=== PATIENT | female | born 2000 | race Caucasian/White ===

== ENCOUNTER 2018-11-10 16:25 | Emergency (ER) | payer OTHER ==
[~2018-11-10] VITALS: Ht 157.5 cm; Wt 80.2 kg
[2018-11-10 16:38] VITALS: Ht 157.5 cm; Wt 80.2 kg
[2018-11-10] MEDS ORDERED: UDMYL PO (19:59)
[2018-11-10 20:06] VITALS: BP 107/67; PULSE 67; RESP 18
--- NOTE | 2018-11-10 20:09 | ERD ---
ER Documentation Chief Complaint Chief Complaint Complains of right ear pain with bleeding x 2 days HPI 18-year-old female presents for right ear pain and bleeding times 2 days. She admits to using Q-tips in her ear. The pain is likely 7 out of 10. She took Motrin at home with some relief. She also complains of abdominal bloating. No other complaints. ROS All systems reviewed and are negative except as per history of present illness. Medications Home Meds Active Scripts Magaldrate/Simethicone* (Mag-Al Plus Suspension*) 30 Ml Oral.susp, 30 ML PO Q6H PRN for GASTROINTESTINAL UPSET, #1 BOTTLE Prov:LONNY OLVERA DO 11/10/18 Allergies Allergies: Coded Allergies: No Known Allergy (Unverified , 11/23/18) PMhx/Soc Medical and Surgical Hx: pt denies Medical Hx, pt denies Surgical Hx Hx Alcohol Use: No Hx Substance Use: No Hx Tobacco Use: No Smoking Status: Never smoker Physical Exam Vitals Vital Signs Date Temp Pulse Resp B/P (MAP) Pulse Ox O2 O2 Flow FiO2 Time Delivery Rate 11/10/18 98.7 67 18 107/67 98 Room Air 20:06 (80) 11/10/18 98.3 74 20 113/59 95 16:38 (77) Physical Exam Const: No acute distress Head: Atraumatic Eyes: Normal Conjunctiva ENT: Right ear cerumen with some small blood spots over the right ear canal noted, after irrigation of the right ear was noted at the bilateral tympanic membrane were intact without erythema or bulging noted, nose and Mouth examination normal, no tonsillar swelling or exudate noted Neck: Full range of motion. No meningismus. Resp: Clear to auscultation bilaterally, no wheezing, rales, rhonchi Cardio: Regular rate and rhythm, no murmurs Skin: No petechiae or rashes Ext: No cyanosis, or edema Neur: Awake and alert Psych: Normal Mood and Affect Results 24 hrs Laboratory Tests Test 11/10/18 18:57 White Blood Count 7.1 10^3/ul Red Blood Count 4.87 10^6/ul Hemoglobin 14.9 g/dl Hematocrit 43.6 % Mean Corpuscular Volume 89.5 fl Mean Corpuscular Hemoglobin 30.6 pg Mean Corpuscular Hemoglobin Concent 34.2 g/dl Red Cell Distribution Width 11.8 % Platelet Count 215 10^3/UL Mean Platelet Volume 10.9 fl Immature Granulocytes % 0.300 % Neutrophils % 61.2 % Lymphocytes % 29.5 % Monocytes % 6.4 % Eosinophils % 2.0 % Basophils % 0.6 % Nucleated Red Blood Cells % 0.0 /100WBC Immature Granulocytes # 0.020 10^3/ul Neutrophils # 4.3 10^3/ul Lymphocytes # 2.1 10^3/ul Monocytes # 0.5 10^3/ul Eosinophils # 0.1 10^3/ul Basophils # 0.0 10^3/ul Nucleated Red Blood Cells # 0.0 10^3/ul Urine Color YELLOW Urine Clarity CLEAR Urine pH 6.0 Urine Specific [place] 1.012 Urine Ketones TRACE mg/dL Urine Nitrite NEGATIVE mg/dL Urine Bilirubin NEGATIVE mg/dL Urine Urobilinogen NEGATIVE mg/dL Urine Leukocyte Esterase NEGATIVE Jaida/ul Urine Hemoglobin NEGATIVE mg/dL Urine Glucose NEGATIVE mg/dL Urine Total Protein NEGATIVE mg/dl Sodium Level 143 mmol/L Potassium Level 4.2 mmol/L Chloride Level 101 mmol/L Carbon Dioxide Level 28 mmol/L Anion Gap 14 Blood Urea Nitrogen 11 mg/dl Creatinine 0.80 mg/dl Est Glomerular Filtrat Rate mL/min > 60 mL/min Glucose Level 101 mg/dl Calcium Level 9.9 mg/dl Total Bilirubin 0.2 mg/dl Direct Bilirubin 0.00 mg/dl Indirect Bilirubin 0.2 mg/dl Aspartate Amino Transf (AST/SGOT) 24 IU/L Alanine Aminotransferase (ALT/SGPT) 22 IU/L Alkaline Phosphatase 79 IU/L Total Protein 7.9 g/dl Albumin 4.8 g/dl Globulin 3.10 g/dl Albumin/Globulin Ratio 1.54 Procedures/MDM Medical Decision Making: Differential diagnosis includes but not limited to otitis media, otitis externa, cerumen impaction. Patient appeared well on physical exam. His right ear was irrigated that showed a normal tympanic membrane without erythema or bulging noted Patient's right ear pain improved with irrigation in the ER. There is some cerumen impaction on the right ear canal that was removed with irrigation. CBC showed no anemia, no elevated WBC to suggest infection CMP showed normal electrolytes, renal function and liver function normal UA was negative for infection. For patient's complaint of abdominal bloating patient given prescription for Mylanta. Patient advised to follow up with PCP in 1-2 days. Patient advised to return to ED for new or worsening symptoms. Patient stable on discharge from the ED. Disclaimer: Inadvertent spelling and grammatical errors are likely due to EHR/dictation software use and do not reflect on the overall quality of patient care. Also, please note that the electronic time recorded on this note does not necessarily reflect the actual time of the patient encounter. Departure Diagnosis: Primary Impression: Right ear pain Additional Impression: Bloating Condition: Fair Patient Instructions: Earache W/O Infection (Adult) Additional Instructions: Call your primary care doctor TOMORROW for an appointment during the next 1-2 days.See the doctor sooner or return here if your condition worsens before your appointment time. LONNY OLVERA DO Nov 10, 2018 20:09
== END 2018-11-10 20:07 | disposition home or self-care (01) ==
LOC: FTE 16:25
DX: H92.01 Otalgia, right ear (principal); R14.0 Abdominal distension (gaseous)
CPT/HCPCS: 80053; 81003; 85025; 99283

== ENCOUNTER 2019-02-19 08:01 | Emergency (ER) | payer MEDICAID, OTHER ==
[~2019-02-19] VITALS: Wt 75.0 kg
[~2019-02-19 08:01] MED LIST: UDMYL PO
[2019-02-19] MEDS ORDERED: ONDANSETRON 4 MG INJ IV STA (08:25)
[2019-02-19] MEDS ORDERED: SOD CHLORIDE 0.9% 1,000 ML IV STA (08:25)
[2019-02-19] MEDS ORDERED: KETOROLAC 30 MG INJ IV STA (08:25)
[2019-02-19] MEDS ORDERED: MECLIZINE 12.5 MG TAB PO ONE (08:30)
[2019-02-19] MEDS ORDERED: MECL12.574 PO (09:50)
[2019-02-19 10:00] VITALS: BP 104/59; PULSE 75; RESP 18
--- NOTE | 2019-02-19 10:22 | ERD ---
ER Documentation Chief Complaint Chief Complaint dizziness and nausea since woke up today HPI 18-year-old female presenting with dizziness and nausea that started this morning. She states that the room is spinning. Has a mild headache but no traumatic injury. Denies fevers. Denies visual changes. No fevers. Positive vomiting. Denies medical problems. NKDA. Surgical history denies. Social history denies ROS All systems reviewed and are negative except as per history of present illness. Medications Home Meds Active Scripts Meclizine Hcl* (Antivert*) 12.5 Mg Tab, 12.5 MG PO Q6H PRN for DIZZINESS, #20 TAB Prov:MONICA ZAMORA PA-C 02/19/19 Magaldrate/Simethicone* (Mag-Al Plus Suspension*) 30 Ml Oral.susp, 30 ML PO Q6H PRN for GASTROINTESTINAL UPSET, #1 BOTTLE Prov:LONNY OLVERA 11/10/18 Allergies Allergies: Coded Allergies: No Known Allergy (Unverified , 11/23/18) PMhx/Soc Hx Alcohol Use: No Hx Substance Use: No Hx Tobacco Use: No Smoking Status: Never smoker FmHx Family History: No diabetes, No coronary disease, No other Physical Exam Vitals Vital Signs Date Temp Pulse Resp B/P (MAP) Pulse Ox O2 O2 Flow FiO2 Time Delivery Rate 02/19/19 75 18 104/59 99 Room Air 10:00 (74) 02/19/19 98.1 64 18 117/75 99 08:03 (89) Physical Exam GENERAL: The patient is well-appearing, well-nourished, in no acute distress HEENT: Atraumatic. Conjunctivae are pink. Pupils equal, round, and reactive to light. There is no scleral icterus. Tympanic membranes clear bilaterally. Oropharynx clear. No nystagmus or photophobia. CHEST: Clear to auscultation bilaterally. There are no rales, wheezes or rhonchi. HEART: Regular rate and rhythm. No murmurs, clicks, rubs or gallops. No S3 or S4. NEUROLOGIC: Alert and oriented. Cranial nerves II through XII intact. Motor strength in all 4 extremities with 5 out of 5 strength. Sensation grossly intact. Normal speech and gait. SKIN: There is no apparent rash or petechiae. The skin is warm and dry. Result Diagram: 02/19/19 0844 02/19/19 0844 Results 24 hrs Laboratory Tests Test 02/19/19 08:38 02/19/19 08:44 02/19/19 08:45 POC Beta HCG, Qualitative NEGATIVE White Blood Count 6.5 10^3/ul Red Blood Count 5.33 10^6/ul Hemoglobin 16.3 g/dl Hematocrit 47.7 % Mean Corpuscular Volume 89.5 fl Mean Corpuscular Hemoglobin 30.6 pg Mean Corpuscular 34.2 g/dl Hemoglobin Concent Red Cell Distribution Width 11.9 % Platelet Count 204 10^3/UL Mean Platelet Volume 11.1 fl Immature Granulocytes % 0.300 % Neutrophils % 65.2 % Lymphocytes % 24.8 % Monocytes % 7.1 % Eosinophils % 2.0 % Basophils % 0.6 % Nucleated Red Blood Cells % 0.0 /100WBC Immature Granulocytes # 0.020 10^3/ul Neutrophils # 4.2 10^3/ul Lymphocytes # 1.6 10^3/ul Monocytes # 0.5 10^3/ul Eosinophils # 0.1 10^3/ul Basophils # 0.0 10^3/ul Nucleated Red Blood Cells # 0.0 10^3/ul Sodium Level 143 mmol/L Potassium Level 4.1 mmol/L Chloride Level 106 mmol/L Carbon Dioxide Level 27 mmol/L Anion Gap 10 Blood Urea Nitrogen 12 mg/dl Creatinine 0.71 mg/dl Est Glomerular Filtrat > 60 mL/min Rate mL/min Glucose Level 103 mg/dl Calcium Level 9.5 mg/dl Urine Color RED Urine Clarity TURBID Urine pH 6.0 Urine Specific [place] 1.021 Urine Ketones NEGATIVE mg/dL Urine Nitrite NEGATIVE mg/dL Urine Bilirubin NEGATIVE mg/dL Urine Urobilinogen NEGATIVE mg/dL Urine Leukocyte Esterase NEGATIVE Jaida/ul Urine Microscopic RBC > 182 /HPF Urine Microscopic WBC 2 /HPF Urine Hemoglobin 3+ mg/dL Urine Glucose NEGATIVE mg/dL Urine Total Protein 2+ mg/dl Current Medications Medications Dose Sig/Delia Start Time Status Last (Trade) Ordered Route PRN Stop Time Admin Dose Reason Admin Sodium 1,000 ml @ Q1H STAT 02/19/19 DC 02/19/19 Chloride 1,000 mls/hr IV 08:25 02/19/19 08:53 09:24 Ondansetron 4 mg ONCE STAT 02/19/19 DC 02/19/19 HCl (Zofran IV 08:25 02/19/19 08:53 Inj) 08:26 Ketorolac 30 mg ONCE STAT 02/19/19 DC 02/19/19 Tromethamine IV 08:25 02/19/19 08:53 (Toradol) 08:26 Meclizine 12.5 mg ONCE ONCE 02/19/19 DC 02/19/19 HCl PO 08:30 02/19/19 08:53 (Antivert) 08:31 Procedures/MDM DIAGNOSTIC IMAGING REPORT Patient: SHANE ERAZO : 2000 Age: 18 Sex: F MR #: [id number] DOS: 02/19/19824 Ordering MD: SCOTT ZAMORA PA-C Location: [facility] Room/Bed: PROCEDURE: CT Brain without contrast. CLINICAL INDICATION: Headache TECHNIQUE: A CT of the brain was performed utilizing axial imaging from the skull base through the vertex without IV contrast. Multiplanar reformatted images were made. Images were reviewed on a PACS workstation. CTDIvol: 39.04 mGy DLP: 634.23 mGycm DICOM images are available. One or more of the following dose reduction techniques were utilized: 1.) Automated exposure control 2.) Adjustment of the mA +/- kV according to patient's size 3.) Use of iterative reconstruction technique. COMPARISON: None FINDINGS: CALVARIUM: Regional bones are intact. SINUSES: Paranasal sinuses and mastoid air cells are clear. BRAIN: There is no evidence of intracranial hemorrhage. Prominence of ventricles and cisterns is normal for age. Nixon - white differentiation is preserved and there is no evidence of an acute or subacute territorial infarction. No intracranial mass or mass effect. IMPRESSION: Negative unenhanced head CT. ER course: 1L NS, toradol, zofran and meclizine given in ED. patient symptoms improved on reevaluation. MDM: 18-year-old female presenting with dizziness. Patient symptoms improved in the ER. Patient is discharged with supportive medications. I have low johnson spicion of intracranial hemorrhage or neuro deficit. Exam is non-concerning. I have low suspicion for meningitis or sepsis. I have low suspicion for infectious process. Patient is discharged with supportive medications and told to follow-up with primary care within 1 to 2 days for close evaluation. Patient is told symptoms change or worsen to return immediately to the ER. All questions answered at discharge Departure Diagnosis: Primary Impression: Vertigo Condition: Stable Patient Instructions: Vertigo, Unspecified Referrals: [facility] YOU HAVE RECEIVED A MEDICAL SCREENING EXAM AND THE RESULTS INDICATE THAT YOU DO NOT HAVE A CONDITION THAT REQUIRES URGENT TREATMENT IN THE EMERGENCY DEPARTMENT. FURTHER EVALUATION AND TREATMENT OF YOUR CONDITION CAN WAIT UNTIL YOU ARE SEEN IN YOUR DOCTORS OFFICE WITHIN THE NEXT 1-2 DAYS. IT IS YOUR RESPONSIBILITY TO MAKE AN APPOINTMENT FOR FOLOW-UP CARE. IF YOU HAVE A PRIMARY DOCTOR --you should call your primary doctor and schedule an appointment IF YOU DO NOT HAVE A PRIMARY DOCTOR YOU CAN CALL OUR PHYSICIAN REFERRAL HOTLINE AT IF YOU CAN NOT AFFORD TO SEE A PHYSICIAN YOU CAN CHOSE FROM THE FOLLOWING [facility] [address]. [facility] [address] [facility] [address] [facility] [facility] [address] [facility]. [facility] [address] [facility]. [facility]. [address] Additional Instructions: FOLLOW UP WITH YOUR PRIMARY CARE PHYSICIAN TOMORROW.Return to this facility if you are not improving as expected. MONICA ZAMORA PA-C February 19, 2019 10:22
== END 2019-02-19 10:01 | disposition home or self-care (01) ==
LOC: FTE 08:01
DX: R42 Dizziness and giddiness (principal)
CPT/HCPCS: 70450; 80048; 81001; 81025; 85025; J1885; J2405; J7030; Z7610; 36415; 96361; 96374; 96375

== ENCOUNTER 2019-04-22 12:12 | Emergency (ER) | payer MEDICAID, OTHER ==
[~2019-04-22] VITALS: Ht 157.5 cm; Wt 84.0 kg
[~2019-04-22 12:12] MED LIST changes: +MECL12.574 PO
[2019-04-22 12:16] VITALS: BP 125/64; PULSE 83; RESP 16; Ht 157.5 cm; Wt 84.0 kg
[2019-04-22] MEDS ORDERED: PSEU-79 PO (12:36)
--- NOTE | 2019-04-22 12:52 | ERD ---
ER Documentation Chief Complaint Chief Complaint dizziness x1 month s/p ruptured ear drum, no neuro deficits/pain HPI 19-year-old female presenting with dizziness x1 month. Patient states 1 month ago she ruptured her right eardrum in the symptoms have resolved. She states her dizziness has returned over the last few days. She denies any vomiting and denies headaches. She occasionally has double vision but it is not present at the time. Patient occasionally takes meclizine with alleviation of symptoms. Denies medical problems. NKDA. Surgical history denies. Social history denies ROS All systems reviewed and are negative except as per history of present illness. Medications Home Meds Active Scripts Pseudoephedrine Hcl* (Suphedrin*) 30 Mg Tablet, 30 MG PO Q6 PRN for CONGESTION, #30 TAB Prov:MONICA ZAMORA PA-C 04/22/19 Meclizine Hcl* (Antivert*) 12.5 Mg Tab, 12.5 MG PO Q6H PRN for DIZZINESS, #20 TAB Prov:MONICA ZAMORA PA-C 02/19/19 Magaldrate/Simethicone* (Mag-Al Plus Suspension*) 30 Ml Oral.susp, 30 ML PO Q6H PRN for GASTROINTESTINAL UPSET, #1 BOTTLE Prov:LONNY OLVERA DO 11/10/18 Allergies Allergies: Coded Allergies: No Known Allergy (Unverified , 11/23/18) PMhx/Soc History of Surgery: No Anesthesia Reaction: No Hx Neurological Disorder: No Hx Respiratory Disorders: No Hx Cardiac Disorders: No Hx Psychiatric Problems: No Hx Miscellaneous Medical Probl: Yes (ruptured ear drum) Hx Alcohol Use: No Hx Substance Use: No Hx Tobacco Use: No Smoking Status: Never smoker FmHx Family History: No diabetes, No coronary disease, No other Physical Exam Vitals Vital Signs Date Temp Pulse Resp B/P (MAP) Pulse Ox O2 O2 Flow FiO2 Time Delivery Rate 04/22/19 98.5 83 16 125/64 99 12:16 (84) Physical Exam GENERAL: The patient is well-appearing, well-nourished, in no acute distress HEENT: Atraumatic. Conjunctivae are pink. Pupils equal, round, and reactive to light. There is no scleral icterus. Tympanic membranes clear bilaterally. Oropharynx clear. No nystagmus or photophobia. NECK: C-spine is soft and supple. There is no meningismus. There is no cervical lymphadenopathy. CHEST: Clear to auscultation bilaterally. There are no rales, wheezes or rhonchi. HEART: Regular rate and rhythm. No murmurs, clicks, rubs or gallops. No S3 or S4. EXTREMITIES: Equal pulses bilaterally. There is no peripheral clubbing, cyanosis or edema. No focal swelling or erythema. Full range of motion. Grossly neurovascularly intact. NEUROLOGIC: Alert and oriented. Cranial nerves II through XII intact. Motor strength in all 4 extremities with 5 out of 5 strength. Sensation grossly intact. Normal speech and gait. SKIN: There is no apparent rash or petechiae. The skin is warm and dry. Procedures/MDM MDM: 19-year-old female presenting with dizziness. Patient's neuro exam is within normal limits. I have low suspicion for intracranial hemorrhage or neuro deficit. I have low suspicion for infectious process. I have low suspicion for retained foreign body in the right ear. I do not feel blood work or imaging is indicated. Vitals are stable and exam is non-concerning. Patient is discharged with strict ER precautions and told to follow-up with primary care within 1 to 2 days for close evaluation. Patient is told if symptoms change or worsen to return immediately to the ER. All questions answered at discharge Departure Diagnosis: Primary Impression: Dizziness Condition: Stable Patient Instructions: Dizziness, Unk Cause [facility]errals[facility] YOU HAVE RECEIVED A MEDICAL SCREENING EXAM AND THE RESULTS INDICATE THAT YOU DO NOT HAVE A CONDITION THAT REQUIRES URGENT TREATMENT IN THE EMERGENCY DEPARTMENT. FURTHER EVALUATION AND TREATMENT OF YOUR CONDITION CAN WAIT UNTIL YOU ARE SEEN IN YOUR DOCTORS OFFICE WITHIN THE NEXT 1-2 DAYS. IT IS YOUR RESPONSIBILITY TO MAKE AN APPOINTMENT FOR FOLOW-UP CARE. IF YOU HAVE A PRIMARY DOCTOR --you should call your primary doctor and schedule an appointment IF YOU DO NOT HAVE A PRIMARY DOCTOR YOU CAN CALL OUR PHYSICIAN REFERRAL HOTLINE AT IF YOU CAN NOT AFFORD TO SEE A PHYSICIAN YOU CAN CHOSE FROM THE FOLLOWING [facility] [address] [facility] [address] [facility]. [facility] [address] [facility] [address] [facility] [facility] [address] [facility]. [facility] [address] [facility] [address] [facility] Hours: Mon - Fri 9:00 AM - 5:00 PM Additional Instructions: FOLLOW UP WITH YOUR PRIMARY CARE PHYSICIAN TOMORROW.Return to this facility if you are not improving as expected. MONIAC ZAMORA PA-C Apr 22, 2019 12:52
== END 2019-04-22 12:55 | disposition home or self-care (01) ==
LOC: FTE 12:12
DX: R42 Dizziness and giddiness (principal)
CPT/HCPCS: 99282

== ENCOUNTER 2019-04-23 23:48 | Emergency (ER) | payer OTHER ==
[~2019-04-23] VITALS: Ht 157.5 cm; Wt 84.0 kg
[~2019-04-23 23:48] MED LIST changes: +PSEU-79 PO
[2019-04-24 00:07] VITALS: Ht 157.5 cm; Wt 84.0 kg
[2019-04-24] MEDS ORDERED: ALBUTEROL/IPRATROPIUM (NEB) 3 ML AMP HHN ONE (00:23)
[2019-04-24] MEDS ORDERED: EPINEPHrine 1 MG INJ SC ONE (00:23)
[2019-04-24] MEDS ORDERED: DEXAMETHASONE 10 MG/ML 1 ML INJ IV ONE (00:30)
[2019-04-24] MEDS ORDERED: DIPHENHYDRAMINE 50 MG INJ IV ONE (00:30)
[2019-04-24] MEDS ORDERED: FAMOTIDINE 20 MG INJ IV ONE (00:30)
[2019-04-24] MEDS ORDERED: BEN50 PO (03:07)
[2019-04-24] MEDS ORDERED: MED4DP PO (03:07)
--- NOTE | 2019-04-24 03:22 | ERD ---
ER Documentation Chief Complaint Chief Complaint SOB/tongue swelling/difficulty swallowing x1 hr s/p med ingestion HPI This is a 19-year-old female comes in with shortness of breath tongue swelling difficulty swallowing 1 hour status post a new medication ingestion. She denies fevers chills. She denies nausea vomiting. She denies any current complaints. ROS All systems reviewed and are negative except as per history of present illness. Medications Home Meds Active Scripts Diphenhydramine Hcl* (Benadryl*) 50 Mg Cap, 50 MG PO Q6 PRN for ALLERGIC REACTION, #30 CAP Prov:RALU BIGGS Ngozi. 04/24/19 Methylprednisolone* (Medrol* DOSE PACK) 4 Mg/Dose-Pack Tab.ds.pk, 4 MG PO . DIRECTED for 7 Days, PACKET Prov:RAUL BIGGS. 04/24/19 Pseudoephedrine Hcl* (Suphedrin*) 30 Mg Tablet, 30 MG PO Q6 PRN for CONGESTION, #30 TAB Prov:MONICA ZAMORA PA-C 04/22/19 Meclizine Hcl* (Antivert*) 12.5 Mg Tab, 12.5 MG PO Q6H PRN for DIZZINESS, #20 TAB Prov:MONICA ZAMORA PA-C 02/19/19 Magaldrate/Simethicone* (Mag-Al Plus Suspension*) 30 Ml Oral.susp, 30 ML PO Q6H PRN for GASTROINTESTINAL UPSET, #1 BOTTLE Prov:LONNY OLVERA DO 11/10/18 Allergies Allergies: Coded Allergies: No Known Allergy (Unverified , 11/23/18) PMhx/Soc History of Surgery: No Anesthesia Reaction: No Hx Neurological Disorder: No Hx Respiratory Disorders: No Hx Cardiac Disorders: No Hx Psychiatric Problems: No Hx Miscellaneous Medical Probl: Yes (ruptured ear drum) Hx Alcohol Use: No Hx Substance Use: No Hx Tobacco Use: No Smoking Status: Never smoker Physical Exam Vitals Vital Signs Date Temp Pulse Resp B/P (MAP) Pulse Ox O2 O2 Flow FiO2 Time Delivery Rate 04/24/19 110 14 115/68 100 Room Air 02:00 (84) 04/24/19 106 26 100 21 00:29 04/24/19 88 14 127/79 98 Room Air 00:12 (95) 04/24/19 98.6 91 16 131/81 95 00:07 (98) Physical Exam Const: No acute distress Head: Atraumatic Eyes: Normal Conjunctiva ENT: Normal External Ears, Nose and Mouth. Neck: Full range of motion. No meningismus. Resp: Clear to auscultation bilaterally Cardio: Regular rate and rhythm, no murmurs Abd: Soft, non tender, non distended. Normal bowel sounds Skin: No petechiae or rashes Back: No midline or flank tenderness Ext: No cyanosis, or edema Neur: Awake and alert Psych: Normal Mood and Affect Results 24 hrs Current Medications Medications Dose Sig/Delia Start Time Status Last (Trade) Ordered Route PRN Stop Time Admin Dose Reason Admin 50 mg ONCE ONCE 04/24/19 DC 04/24/19 Diphenhydrami IV 00:30 00:26 ne HCl 04/24/19 00:31 (Benadryl) 10 mg ONCE ONCE 04/24/19 DC 04/24/19 Dexamethasone IV 00:30 00:26 (Decadron) 04/24/19 00:31 Famotidine 20 mg ONCE ONCE 04/24/19 DC 04/24/19 (Pepcid Iv) IV 00:30 00:26 04/24/19 00:31 Epinephrine 0.3 mg ONCE ONCE 04/24/19 DC 04/24/19 SC 00:23 00:26 (EPINEPHrine) 04/24/19 00:24 Albuterol/ 3 ml ONCE ONCE 04/24/19 DC 04/24/19 Ipratropium HHN 00:23 00:28 (Duoneb) 04/24/19 00:24 Procedures/MDM Medical decision making: Is a 19-year-old female had an anaphylactic reaction to medication. She is been treated here in the ER observed for 4 hours. She is clinically stable for outpatient management with complete resolution of symptoms. Patient be discharged home with steroids and Benadryl. She is follow-up with her primary care physician. Return for any worsening symptoms. Departure Diagnosis: Primary Impression: Allergic reaction Encounter type: initial encounter Qualified Codes: T78.40XA - Allergy, unspecified, initial encounter Condition: Stable Patient Instructions: First Aid: Allergic Reactions RAUL BIGGS Apr 24, 2019 03:18
[2019-04-24 03:55] VITALS: BP 111/62; PULSE 110; RESP 24
[2019-04-24] MEDS ORDERED: LORA-441 PO (17:44)
[2019-04-25] MEDS ORDERED: LORA-441 PO (13:16)
== END 2019-04-24 03:55 | disposition home or self-care (01) ==
LOC: E/R 23:48
DX: R06.02 Shortness of breath (principal); T44.995A Adverse effect of other drug primarily affecting the autonomic nervous system, initial encounter
CPT/HCPCS: 94664; 96372; 96374; 96375; J1100; J1200; Z7502; Z7610

== ENCOUNTER 2019-04-25 12:40 | Emergency (ER) | payer OTHER ==
[~2019-04-25] VITALS: Ht 157.5 cm; Wt 83.0 kg
[~2019-04-25 12:40] MED LIST changes: +BEN50 PO; +LORA-441 PO; +MED4DP PO
[2019-04-25 13:01] VITALS: BP 108/58; PULSE 89; RESP 22; Ht 157.5 cm; Wt 83.0 kg
--- NOTE | 2019-04-25 13:14 | ERD ---
ER Documentation Chief Complaint Chief Complaint sore throat with possible anxiety HPI 19-year-old female, with history of anxiety, presents the emergency department, complaining of worsening of anxiety after having an anaphylactic reaction and started prednisone. Otherwise, the patient denies chest pain, shortness of breath, no sore throat, no difficulty swallowing. ROS All systems reviewed and are negative except as per history of present illness. Medications Home Meds Active Scripts Lorazepam* (Ativan*) 0.5 Mg Tablet, 0.5 MG PO QHS PRN for ANXIETY, #10 TAB Prov:BRIAN RUBIN MD 04/25/19 Lorazepam* (Ativan*) 0.5 Mg Tablet, 0.5 MG PO Q8 for anxiety, #10 TAB Prov:JOAQUIN LONG NP 04/24/19 Diphenhydramine Hcl* (Benadryl*) 50 Mg Cap, 50 MG PO Q6 PRN for ALLERGIC REACTION, #30 CAP Prov:RAUL BIGGS. 04/24/19 Methylprednisolone* (Medrol* DOSE PACK) 4 Mg/Dose-Pack Tab.ds.pk, 4 MG PO . DIRECTED for 7 Days, PACKET Prov:RAUL BIGGS S. 04/24/19 Pseudoephedrine Hcl* (Suphedrin*) 30 Mg Tablet, 30 MG PO Q6 PRN for CONGESTION, #30 TAB Prov:MONICA ZAMORA PA-C 04/22/19 Meclizine Hcl* (Antivert*) 12.5 Mg Tab, 12.5 MG PO Q6H PRN for DIZZINESS, #20 TAB Prov:MONICA ZAMORA PA-C 02/19/19 Magaldrate/Simethicone* (Mag-Al Plus Suspension*) 30 Ml Oral.susp, 30 ML PO Q6H PRN for GASTROINTESTINAL UPSET, #1 BOTTLE Prov:LONNY OLVERA DO 11/10/18 Allergies Allergies: Coded Allergies: pseudoephedrine (Verified Allergy, Severe, 04/24/19) PMhx/Soc History of Surgery: No Anesthesia Reaction: No Hx Neurological Disorder: No Hx Respiratory Disorders: No Hx Cardiac Disorders: No Hx Psychiatric Problems: No Hx Miscellaneous Medical Probl: Yes (ruptured ear drum) Hx Alcohol Use: No Hx Substance Use: No Hx Tobacco Use: No FmHx Family History: No diabetes, No coronary disease Physical Exam Vitals Vital Signs Date Temp Pulse Resp B/P (MAP) Pulse Ox O2 O2 Flow FiO2 Time Delivery Rate 04/25/19 98.9 89 22 108/58 97 13:01 (75) Physical Exam Const: No acute distress Head: Atraumatic Eyes: Normal Conjunctiva ENT: Normal External Ears, Nose and Mouth. Neck: Full range of motion. No meningismus. Resp: Clear to auscultation bilaterally Cardio: Regular rate and rhythm, no murmurs Abd: Soft, non tender, non distended. Normal bowel sounds Skin: No petechiae or rashes Back: No midline or flank tenderness Ext: No cyanosis, or edema Neur: Awake and alert Psych: Normal Mood and Affect Procedures/MDM Vital signs stable, Physical exam unremarkable, neurovascular exam intact. Differential diagnosis include but not limited to: Depression, anxiety, migraine, thyroid disease, electrolyte imbalance. Low suspicion for anaphylactic reaction. Physical examination and clinical presentation consistent most likely with anxiety. During the ED course the patient remained stable, no new complaints. Results and clinical impression discussed with patient who agrees with management. The patient is stable to be treated outpatient and will be discharged home with a Rx for lorazepam, some side effects of prescribed medications (headache, rash, nausea, vomiting, diarrhea, drowsiness, habituation, bleeding, hypertension, interactions with other medications) were reviewed. The patient was instructed to follow up with the primary care provider in the next 48h. If symptoms persist, worsen or new symptoms develop, then patient should return to the ED immediately. Instructions explained and given directly by me to the patient with acknowledgment and demonstrated understanding. Disclaimer: Inadvertent spelling and grammatical errors are likely due to EHR/dictation software use and do not reflect on the overall quality of patient care. Also, please note that the electronic time recorded on this note does not necessarily reflect the actual time of the patient encounter. Departure Diagnosis: Primary Impression: Anxiety Condition: Stable Patient Instructions: Your Body's Response to Anxiety Additional Instructions: Thank you very much for allowing us to participate in your care. Your health and safety is our top priority at [facility]. The evaluation in the emergency department has been done to rule out an acute emergency. Chronic, hrj-avhy-bhtsgvdjuep conditions may have not been evaluated; therefore, you need to follow up with a primary care provider in the next 48h. If symptoms persist, worsen or new symptoms develop, then patient should return to the ED immediately. Call your primary care doctor TOMORROW for an appointment during the next 2-4 days and bring all the information provided. Have prescriptions filled and follow precisely the directions on the label. If the symptoms get worse and your provider is unavailable, return to the Emergency Department immediately. BRIAN RUBIN MD Apr 25, 2019 13:14
[2019-04-25] MEDS ORDERED: LORA-441 PO (13:16)
== END 2019-04-25 13:18 | disposition home or self-care (01) ==
LOC: E/R 12:40
DX: F41.9 Anxiety disorder, unspecified (principal)
CPT/HCPCS: 99283

== ENCOUNTER → 2019-04-26 | Emergency (ER) | payer OTHER ==
[~2019-04-26] VITALS: Wt 82.0 kg
[2019-04-26 14:05] VITALS: BP 122/71; PULSE 105; RESP 20
--- NOTE | 2019-04-26 17:40 | ERD ---
ER Documentation Chief Complaint Chief Complaint INSOMNIA FOR A FEW DAYS. NO SOB NO CHEST PAIN NO NEURO DEFICIT. ROS All systems reviewed and are negative except as per history of present illness. Medications Home Meds Active Scripts Lorazepam* (Ativan*) 0.5 Mg Tablet, 0.5 MG PO QHS PRN for ANXIETY, #10 TAB Prov:BRIAN RUBIN MD 04/25/19 Lorazepam* (Ativan*) 0.5 Mg Tablet, 0.5 MG PO Q8 for anxiety, #10 TAB Prov:JOAQUIN LONG NP 04/24/19 Diphenhydramine Hcl* (Benadryl*) 50 Mg Cap, 50 MG PO Q6 PRN for ALLERGIC REACTION, #30 CAP Prov:RAUL BIGGS. 04/24/19 Methylprednisolone* (Medrol* DOSE PACK) 4 Mg/Dose-Pack Tab.ds.pk, 4 MG PO . DIRECTED for 7 Days, PACKET Prov:RAUL BIGGS 04/24/19 Pseudoephedrine Hcl* (Suphedrin*) 30 Mg Tablet, 30 MG PO Q6 PRN for CONGESTION, #30 TAB Prov:MONICA ZAMORA PA-C 04/22/19 Meclizine Hcl* (Antivert*) 12.5 Mg Tab, 12.5 MG PO Q6H PRN for DIZZINESS, #20 TAB Prov:MONICA ZAMORA PA-C 02/19/19 Magaldrate/Simethicone* (Mag-Al Plus Suspension*) 30 Ml Oral.susp, 30 ML PO Q6H PRN for GASTROINTESTINAL UPSET, #1 BOTTLE Prov:LONNY OLVERA DO 11/10/18 Allergies Allergies: Coded Allergies: pseudoephedrine (Verified Allergy, Severe, 04/24/19) PMhx/Soc Medical and Surgical Hx: pt denies Medical Hx, pt denies Surgical Hx History of Surgery: No Anesthesia Reaction: No Hx Neurological Disorder: No Hx Respiratory Disorders: No Hx Cardiac Disorders: No Hx Psychiatric Problems: No Hx Miscellaneous Medical Probl: Yes (ruptured ear drum) Hx Alcohol Use: No Hx Substance Use: No Hx Tobacco Use: No Smoking Status: Never smoker Physical Exam Vitals Vital Signs Date Temp Pulse Resp B/P (MAP) Pulse Ox O2 O2 Flow FiO2 Time Delivery Rate 04/26/19 98.5 105 20 122/71 98 14:05 (88) Physical Exam Const: No acute distress Head: Atraumatic Eyes: Normal Conjunctiva ENT: Normal External Ears, Nose and Mouth. Neck: Full range of motion. No meningismus. Resp: Clear to auscultation bilaterally Cardio: Regular rate and rhythm, no murmurs Abd: Soft, non tender, non distended. Normal bowel sounds Skin: No petechiae or rashes Back: No midline or flank tenderness Ext: No cyanosis, or edema Neur: Awake and alert Psych: Normal Mood and Affect Departure Diagnosis: Primary Impression: Insomnia Condition: Stable Additional Instructions: Thank you very much for allowing us to participate in your care. Your health and safety is our top priority at [facility]. The evaluation in the emergency department has been done to rule out an acute emergency. Chronic, rgc-bkel-iwduxneedpc conditions may have not been evalu ated; therefore, you need to follow up with a primary care provider in the next 48h. If symptoms persist, worsen or new symptoms develop, then patient should return to the ED immediately. Call your primary care doctor TOMORROW for an appointment during the next 2-4 days and bring all the information provided. Have prescriptions filled and follow precisely the directions on the label. If the symptoms get worse and your provider is unavailable, return to the Emergency Department immediately. BRIAN RUBIN MD Apr 26, 2019 17:40
== END | disposition home or self-care (01) ==
LOC: FTE 14:02
DX: G47.00 Insomnia, unspecified (principal)
CPT/HCPCS: 99282

== ENCOUNTER 2019-05-05 11:13 | Emergency (ER) | payer OTHER ==
[~2019-05-05] VITALS: Ht 157.5 cm; Wt 79.5 kg
[2019-05-05 11:16] VITALS: BP 108/61; PULSE 77; RESP 18; Ht 157.5 cm; Wt 79.5 kg
[2019-05-05] MEDS ORDERED: BEN25 PO (11:51)
--- NOTE | 2019-05-05 11:54 | ERD ---
ER Documentation Chief Complaint Chief Complaint anxiety, feels like heart is beating fast x 1 week HPI 19-year-old female with no reported past medical history presents with complaint of anxiety, omnia and "feeling like her heart is beating too fast" for approximately 1 week. Of note patient has been in the ED multiple times this month for similar complaints. Has been prescribed Ativan and Benadryl for insomnia patient reports she has not filled any of these prescriptions. Had long conversation with patient regarding management of her anxiety disorder. Advised patient to follow-up with PMD and obtain referral to mental health specialist. She otherwise denies chest pain, shortness of breath, dyspnea, nausea, vomiting, diarrhea, abdominal pain, urinary symptoms. At time of evaluation patient nontoxic-appearing with normal triage vital signs. ROS All systems reviewed and are negative except as per history of present illness. Medications Home Meds Active Scripts Diphenhydramine Hcl* (Benadryl*) 25 Mg Cap, 25 MG PO Q6, #30 CAP Prov:ANALY MATHUR PA-C 05/05/19 Lorazepam* (Ativan*) 0.5 Mg Tablet, 0.5 MG PO QHS PRN for ANXIETY, #10 TAB Prov:BRIAN RUBIN MD 04/25/19 Lorazepam* (Ativan*) 0.5 Mg Tablet, 0.5 MG PO Q8 for anxiety, #10 TAB Prov:JOAQUIN LONG NP 04/24/19 Diphenhydramine Hcl* (Benadryl*) 50 Mg Cap, 50 MG PO Q6 PRN for ALLERGIC REACTION, #30 CAP Prov:RAUL BIGGS 04/24/19 Methylprednisolone* (Medrol* DOSE PACK) 4 Mg/Dose-Pack Tab.ds.pk, 4 MG PO . DIRECTED for 7 Days, PACKET Prov:RAUL BIGGS 04/24/19 Pseudoephedrine Hcl* (Suphedrin*) 30 Mg Tablet, 30 MG PO Q6 PRN for CONGESTION, #30 TAB Prov:MONICA ZAMORA PA-C 04/22/19 Meclizine Hcl* (Antivert*) 12.5 Mg Tab, 12.5 MG PO Q6H PRN for DIZZINESS, #20 TAB Prov:MONICA ZAMORA PA-C 02/19/19 Magaldrate/Simethicone* (Mag-Al Plus Suspension*) 30 Ml Oral.susp, 30 ML PO Q6H PRN for GASTROINTESTINAL UPSET, #1 BOTTLE Prov:LONNY OLVERA DO 11/10/18 Allergies Allergies: Coded Allergies: pseudoephedrine (Verified Allergy, Severe, 04/24/19) PMhx/Soc History of Surgery: No Anesthesia Reaction: No Hx Neurological Disorder: No Hx Respiratory Disorders: No Hx Cardiac Disorders: No Hx Psychiatric Problems: No Hx Miscellaneous Medical Probl: Yes (ruptured ear drum) Hx Alcohol Use: No Hx Substance Use: No Hx Tobacco Use: No Smoking Status: Never smoker FmHx Family History: No diabetes, No coronary disease, No other Physical Exam Vitals Vital Signs Date Temp Pulse Resp B/P (MAP) Pulse Ox O2 O2 Flow FiO2 Time Delivery Rate 05/05/19 98.0 77 18 108/61 99 11:16 (77) Physical Exam Const: No acute distress Head: Atraumatic Eyes: Normal Conjunctiva ENT: Normal External Ears, Nose and Mouth. Neck: Full range of motion. No meningismus. Resp: Clear to auscultation bilaterally Cardio: Regular rate and rhythm, no murmurs Abd: Soft, non tender, non distended. Normal bowel sounds Skin: No petechiae or rashes Back: No midline or flank tenderness Ext: No cyanosis, or edema Neur: Awake and alert Psych: Normal Mood and Affect Procedures/MDM 19-year-old female who again presents with complaint of anxiety and insomnia. I have low suspicion for any acute process warranting further emergent care work- up at this time. Advised patient and extensively to follow-up with PMD and obtain referral to mental health specialist. Take medications as prescribed. DISPOSITION PLAN: We discussed follow up with the patient's primary care doctor within 24 to 48 hours. Patient counseled regarding my diagnostic impression and care plan. Prior to discharge all questions answered. Pt agrees with treatment plan and understands strict return precautions. Precautionary instructions provided including instructions to return to the ER if not improving or for any worsening or changing symptoms or concerns. Disclaimer: Inadvertent spelling and grammatical errors are likely due to EHR/dictation software use and do not reflect on the overall quality of patient care. Also, please note that the electronic time recorded on this note does not necessarily reflect the actual time of the patient encounter. Departure Diagnosis: Primary Impression: Anxiety Condition: Stable Patient Instructions: Anxiety Reaction Referrals: [facility] (PCP) Additional Instructions: Call your primary care doctor TOMORROW for an appointment during the next 2-3 days.See the doctor sooner or return here if your condition worsens before your appointment time. ANALY MATHUR PA-C May 05, 2019 11:54
== END 2019-05-05 12:30 | disposition home or self-care (01) ==
LOC: FTE 11:13
DX: F41.9 Anxiety disorder, unspecified (principal)
CPT/HCPCS: 99282

== ENCOUNTER 2019-05-05 16:12 | Emergency (ER) | payer OTHER ==
[~2019-05-05] VITALS: Ht 157.5 cm; Wt 79.8 kg
[~2019-05-05 16:12] MED LIST changes: +BEN25 PO; +HYDR-3029 PO; +IBUP-1542 PO; +ONDA4TAB14 PO
[2019-05-05 16:15] VITALS: Ht 157.5 cm; Wt 79.8 kg
--- NOTE | 2019-05-05 16:46 | ERD ---
ER Documentation Chief Complaint Chief Complaint dizziness was seen here earlier HPI 19-year-old female with past medical history of severe anxiety who presents to emergency room with complaint of dizziness, nausea and vomiting. Patient seen earlier in this ED for anxiety complaint. Also in the ED multiple times including April 22, , for of symptoms with unremarkable work-up. States that she got home from her earlier ED visit had a single episode of nausea and vomiting. Vomit is nonbilious nonbloody. She otherwise denies associated abdominal pain, fevers, recent fall or trauma, chest pain, shortness of breath, dyspnea, headache, blurry vision, diplopia, difficulties ambulating, drug or alcohol use. States she is concerned about her issues with anxiety but denies depression or suicidal ideation. States she called Lindsey who is her's therapist and has made an appointment for evaluation this upcoming Sunday. She otherwise is without complaint at the time of evaluation nontoxic-appearing with normal triage vital signs. ROS All systems reviewed and are negative except as per history of present illness. Medications Home Meds Active Scripts Diphenhydramine Hcl* (Benadryl*) 25 Mg Cap, 25 MG PO Q6, #30 CAP Prov:ANALY MATHUR PA-C 05/05/19 Lorazepam* (Ativan*) 0.5 Mg Tablet, 0.5 MG PO QHS PRN for ANXIETY, #10 TAB Prov:BRIAN RUBIN MD 04/25/19 Lorazepam* (Ativan*) 0.5 Mg Tablet, 0.5 MG PO Q8 for anxiety, #10 TAB Prov:JOAQUIN LONG NP 04/24/19 Diphenhydramine Hcl* (Benadryl*) 50 Mg Cap, 50 MG PO Q6 PRN for ALLERGIC REACTION, #30 CAP Prov:RAUL BIGGS 04/24/19 Methylprednisolone* (Medrol* DOSE PACK) 4 Mg/Dose-Pack Tab.ds.pk, 4 MG PO . DIRECTED for 7 Days, PACKET Prov:RAUL BIGGS 04/24/19 Pseudoephedrine Hcl* (Suphedrin*) 30 Mg Tablet, 30 MG PO Q6 PRN for CONGESTION, #30 TAB Prov:MONICA ZAMORA PA-C 04/22/19 Meclizine Hcl* (Antivert*) 12.5 Mg Tab, 12.5 MG PO Q6H PRN for DIZZINESS, #20 TAB Prov:MONICA ZAMORA PA-C 02/19/19 Magaldrate/Simethicone* (Mag-Al Plus Suspension*) 30 Ml Oral.susp, 30 ML PO Q6H PRN for GASTROINTESTINAL UPSET, #1 BOTTLE Prov:LONNY OLVERA DO 11/10/18 Allergies Allergies: Coded Allergies: pseudoephedrine (Verified Allergy, Severe, 04/24/19) PMhx/Soc History of Surgery: No Anesthesia Reaction: No Hx Neurological Disorder: No Hx Respiratory Disorders: No Hx Cardiac Disorders: No Hx Psychiatric Problems: No Hx Miscellaneous Medical Probl: Yes (ruptured ear drum) Hx Alcohol Use: No Hx Substance Use: No Hx Tobacco Use: No Smoking Status: Never smoker FmHx Family History: No diabetes, No coronary disease, No other Physical Exam Vitals Vital Signs Date Temp Pulse Resp B/P (MAP) Pulse Ox O2 O2 Flow FiO2 Time Delivery Rate 05/05/19 98.4 96 18 125/78 98 16:15 (94) Physical Exam I have reviewed the triage vital signs. Const: Well nourished, well developed, appears stated age Eyes: PERRL, no conjunctival injection HENT: NCAT, Neck supple without meningismus CV: RRR, Warm, well-perfused extremities RESP: CTAB, Unlabored respiratory effort GI: soft, non-tender, non-distended, no masses MSK: No gross deformities appreciated Skin: Warm, dry. No rashes Neuro: grossly non focal Psych: Appropriate mood and affect. Result Diagram: 05/05/19 1744 05/05/19 1744 Results 24 hrs Laboratory Tests Test 05/05/19 17:44 05/05/19 17:49 White Blood Count 10.3 10^3/ul Red Blood Count 5.12 10^6/ul Hemoglobin 15.7 g/dl Hematocrit 45.5 % Mean Corpuscular Volume 88.9 fl Mean Corpuscular Hemoglobin 30.7 pg Mean Corpuscular Hemoglobin Concent 34.5 g/dl Red Cell Distribution Width 11.9 % Platelet Count 252 10^3/UL Mean Platelet Volume 10.6 fl Immature Granulocytes % 0.400 % Neutrophils % 79.0 % Lymphocytes % 14.1 % Monocytes % 5.8 % Eosinophils % 0.3 % Basophils % 0.4 % Nucleated Red Blood Cells % 0.0 /100WBC Immature Granulocytes # 0.040 10^3/ul Neutrophils # 8.2 10^3/ul Lymphocytes # 1.5 10^3/ul Monocytes # 0.6 10^3/ul Eosinophils # 0.0 10^3/ul Basophils # 0.0 10^3/ul Nucleated Red Blood Cells # 0.0 10^3/ul Sodium Level 139 mmol/L Potassium Level 4.1 mmol/L Chloride Level 101 mmol/L Carbon Dioxide Level 25 mmol/L Anion Gap 13 Blood Urea Nitrogen 10 mg/dl Creatinine 0.80 mg/dl Est Glomerular Filtrat Rate mL/min > 60 mL/min Glucose Level 100 mg/dl Calcium Level 10.0 mg/dl Thyroid Stimulating Hormone (TSH) Pending Urine Color COLORLESS Urine Clarity CLEAR Urine pH 6.0 Urine Specific [place] 1.002 Urine Ketones TRACE mg/dL Urine Nitrite NEGATIVE mg/dL Urine Bilirubin NEGATIVE mg/dL Urine Urobilinogen NEGATIVE mg/dL Urine Leukocyte Esterase NEGATIVE Jaida/ul Urine Microscopic RBC 0 /HPF Urine Microscopic WBC 0 /HPF Urine Hemoglobin 1+ mg/dL Urine Glucose NEGATIVE mg/dL Urine Total Protein NEGATIVE mg/dl Current Medications Medications Dose Sig/Delia Start Time Status Last (Trade) Ordered Route PRN Stop Time Admin Dose Reason Admin Meclizine 12.5 mg ONCE ONCE 05/05/19 DC 05/05/19 HCl PO 17:00 16:53 (Antivert) 05/05/19 17:01 Ondansetron 4 mg ONCE STAT 05/05/19 DC HCl (Zofran ODT 16:39 Odt) 05/05/19 16:40 Lorazepam 0.5 mg ONCE ONCE 05/05/19 DC (Ativan) PO 17:30 05/05/19 17:31 Procedures/MDM 19-year-old female with past medical history of severe anxiety who presents with complaint of dizziness with nausea and vomiting. Patient seen earlier and multiple times in his ED over the past several weeks for multiple complaints with unremarkable work-up. She reports she has not taken medication that she has been prescribed. I have low suspicion for any acute process warranting further emergent care work-up. Patient again advised to establish care with mental health provider. All questions answered. ED course: Antivert, Zofran for nausea, requesting IV and additional work-up Patient seen and evaluated by attending Dr. Leon, soft work-up initiated including basic labs, EKG, urinalysis which were all unremarkable Patient to be discharged, advised to take medications as prescribed over the past few days, advised to keep appointment with mental health specialist as she indicated on Sunday DISPOSITION PLAN: We discussed follow up with the patient's primary care doctor within 24 to 48 hours. Patient counseled regarding my diagnostic impression and care plan. Prior to discharge all questions answered. Pt agrees with treatment plan and understands strict return precautions. Precautionary instructions provided including instructions to return to the ER if not improving or for any worsening or changing symptoms or concerns. Disclaimer: Inadvertent spelling and grammatical errors are likely due to EHR/dictation software use and do not reflect on the overall quality of patient care. Also, please note that the electronic time recorded on this note does not necessarily reflect the actual time of the patient encounter. Departure Diagnosis: Primary Impression: Dizziness Additional Impression: Anxiety Condition: Stable Patient Instructions: Dizziness, Unk Cause Referrals: [facility] (PCP) Additional Instructions: Call your primary care doctor TOMORROW for an appointment during the next 2-3 days.See the doctor sooner or return here if your condition worsens before your appointment time. ANALY MATHUR PA-C May 05, 2019 16:46
[2019-05-05] MEDS: ONDANSETRON (ODT) 4 MG TAB ODT STA ×2 (16:53→16:55)
[2019-05-05] MEDS ORDERED: MECLIZINE 12.5 MG TAB PO ONE (17:00)
[2019-05-05] MEDS ORDERED: LORAZEPAM 0.5 MG TAB PO ONE (17:30)
[2019-05-05 19:10] VITALS: BP 110/64; PULSE 88; RESP 18
== END 2019-05-05 19:12 | disposition home or self-care (01) ==
LOC: FTE 16:12
DX: R42 Dizziness and giddiness (principal); F41.9 Anxiety disorder, unspecified; R11.2 Nausea with vomiting, unspecified
CPT/HCPCS: 80048; 81001; 84443; 85025; 93005; Z7502; Z7610

== ENCOUNTER 2019-05-07 12:17 | Emergency (ER) | payer OTHER ==
[~2019-05-07] VITALS: Ht 157.5 cm; Wt 79.6 kg
[~2019-05-07 12:17] MED LIST changes: -HYDR-3029 PO; -IBUP-1542 PO; -ONDA4TAB14 PO
[2019-05-07 12:24] VITALS: BP 108/63; PULSE 67; RESP 16; Ht 157.5 cm; Wt 79.6 kg
[2019-05-07] MEDS ORDERED: ONDA4TAB14 PO (15:08)
[2019-05-07] MEDS ORDERED: HYDR-3029 PO (15:12)
--- NOTE | 2019-05-07 15:33 | ERD ---
ER Documentation Chief Complaint Chief Complaint 2 wk cc: diarrhea, weak, dry cough. mild dysuria. HPI 19-year-old female presenting with diarrhea and heart palpitations when she tries to go to bed at night. Patient states that she has been able to sleep and she is feeling very anxious due to this. Denies any chest pain or shortness of breath. Has not taken medications for her symptoms. Denies medical problems. NKDA. Surgical history denies. Social history denies ROS All systems reviewed and are negative except as per history of present illness. Medications Home Meds Active Scripts Hydroxyzine Hcl* (Hydroxyzine Hcl*) 10 Mg Tablet, 10 MG PO Q6H PRN for ANXIETY, #30 TAB Prov:MONICA ZAMORA PA-C 05/07/19 Ondansetron (Ondansetron Odt) 4 Mg Tab.rapdis, 4 MG PO Q6H PRN for NAUSEA AND/OR VOMITING, #10 TAB Prov:MONICA ZAMORA PA-C 05/07/19 Diphenhydramine Hcl* (Benadryl*) 25 Mg Cap, 25 MG PO Q6, #30 CAP Prov:ANALY MATHUR PA-C 05/05/19 Lorazepam* (Ativan*) 0.5 Mg Tablet, 0.5 MG PO QHS PRN for ANXIETY, #10 TAB Prov:BRIAN RUBIN MD 04/25/19 Lorazepam* (Ativan*) 0.5 Mg Tablet, 0.5 MG PO Q8 for anxiety, #10 TAB Prov:JOAQUIN LONG NP 04/24/19 Diphenhydramine Hcl* (Benadryl*) 50 Mg Cap, 50 MG PO Q6 PRN for ALLERGIC REACTION, #30 CAP Prov:RAUL BIGGS 04/24/19 Methylprednisolone* (Medrol* DOSE PACK) 4 Mg/Dose-Pack Tab.ds.pk, 4 MG PO . DIRECTED for 7 Days, PACKET Prov:RAUL BIGGS 04/24/19 Pseudoephedrine Hcl* (Suphedrin*) 30 Mg Tablet, 30 MG PO Q6 PRN for CONGESTION, #30 TAB Prov:MONICA ZAMORA PA-C 04/22/19 Meclizine Hcl* (Antivert*) 12.5 Mg Tab, 12.5 MG PO Q6H PRN for DIZZINESS, #20 TAB Prov:MONICA ZAMORA PA-C 02/19/19 Magaldrate/Simethicone* (Mag-Al Plus Suspension*) 30 Ml Oral.susp, 30 ML PO Q6H PRN for GASTROINTESTINAL UPSET, #1 BOTTLE Prov:LONNY OLVERA DO 11/10/18 Allergies Allergies: Coded Allergies: pseudoephedrine (Verified Allergy, Severe, 04/24/19) PMhx/Soc History of Surgery: No Anesthesia Reaction: No Hx Neurological Disorder: No Hx Respiratory Disorders: No Hx Cardiac Disorders: No Hx Psychiatric Problems: No Hx Miscellaneous Medical Probl: Yes (ruptured ear drum) Hx Alcohol Use: No Hx Substance Use: No Hx Tobacco Use: No FmHx Family History: No diabetes, No coronary disease, No other Physical Exam Vitals Vital Signs Date Temp Pulse Resp B/P (MAP) Pulse Ox O2 O2 Flow FiO2 Time Delivery Rate 05/07/19 98.4 67 16 108/63 97 12:24 (78) Physical Exam GENERAL: The patient is well-appearing, well-nourished, in no acute distress HEENT: Atraumatic. Conjunctivae are pink. Pupils equal, round, and reactive to light. There is no scleral icterus. Tympanic membranes clear bilaterally. Oropharynx clear. NECK: C-spine is soft and supple. There is no meningismus. There is no cervical lymphadenopathy. CHEST: Clear to auscultation bilaterally. There are no rales, wheezes or rhonchi. HEART: Regular rate and rhythm. No murmurs, clicks, rubs or gallops. No S3 or S4. ABDOMEN:Soft, nontender and nondistended. Good bowel sounds. No rebound or guarding. No gross peritonitis. No gross organomegaly or masses. Results 24 hrs Laboratory Tests Test 05/07/19 13:00 05/07/19 13:02 POC Beta HCG, Qualitative NEGATIVE Bedside Urine pH (LAB) 6.5 Bedside Urine Protein (LAB) Negative Bedside Urine Glucose (UA) Negative Bedside Urine Ketones (LAB) Negative Bedside Urine Blood Negative Bedside Urine Nitrite (LAB) Negative Bedside Urine Leukocyte Esterase (L Negative Procedures/MDM EKG: Rate/Rhythm: 71 bpm Normal Sinus Rhythm QRS, ST, T-waves: No changes consistent w/ acute ischemia Impression: No evidence of ischemia or arrhythmia ER course: Thyroid panel was drawn however machine in the laboratory is down at this time so patient will be discharged and followed up with results. I feel the patient is stable for outpatient management. MDM: 19-year-old female complaining of heart palpitations. I believe symptoms are likely associated with anxiety. I have low suspicion for cardiac or pulmonary emergency. I have low suspicion for suicidal homicidal ideations. Patient denies ideations. Patient is discharged with supportive medications and told to follow-up with primary care within 1 to 2 days for close evaluation. Patient is told symptoms change or worsen to return immediately to the ER. All questions answered at discharge Departure Diagnosis: Primary Impression: Diarrhea Condition: Stable Patient Instructions: Self-Care for Vomiting and Diarrhea Referrals: [facility] (PCP) Additional Instructions: FOLLOW UP WITH YOUR PRIMARY CARE PHYSICIAN TOMORROW.Return to this facility if you are not improving as expected. MONICA ZAMORA PA-C May 07, 2019 15:33
== END 2019-05-07 15:14 | disposition home or self-care (01) ==
LOC: FTE 12:17
DX: R19.7 Diarrhea, unspecified (principal); R00.2 Palpitations
CPT/HCPCS: 81003; 81025; 84436; 84443; 84479; 93005

== ENCOUNTER 2019-05-12 09:23 | Emergency (ER) | payer OTHER ==
[~2019-05-12] VITALS: Ht 157.5 cm; Wt 80.2 kg
[~2019-05-12 09:23] MED LIST changes: +HYDR-3029 PO; +ONDA4TAB14 PO
[2019-05-12 09:35] VITALS: BP 134/67; PULSE 86; RESP 20; Ht 157.5 cm; Wt 80.2 kg
[2019-05-12] MEDS ORDERED: KETOROLAC 60 MG INJ IM STA (10:07)
[2019-05-12] MEDS ORDERED: IBUP-1542 PO (10:11)
--- NOTE | 2019-05-12 14:27 | ERD ---
ER Documentation Chief Complaint Chief Complaint TINGLING SENSATION ON HEAD WITH FLOATERS IN VISION. HX MIGRAINES, ANXIETY HPI 19-year-old female presenting with a headache. Patient states she is had the symptoms intermittently over the last month and feels that she is anxious. Denies any suicidal or homicidal ideations. Denies other medical problems. NKDA. Surgical history denies. Social history denies. Previously patient was having difficulty sleeping but received medication and her symptoms have improved. Denies suicidal or homicidal ideations ROS All systems reviewed and are negative except as per history of present illness. Medications Home Meds Active Scripts Ibuprofen* (Motrin*) 600 Mg Tab, 600 MG PO Q6, #30 TAB Prov:MONICA ZAMORA PA-C 05/12/19 Hydroxyzine Hcl* (Hydroxyzine Hcl*) 10 Mg Tablet, 10 MG PO Q6H PRN for ANXIETY, #30 TAB Prov:MONICA ZAMORA PA-C 05/07/19 Ondansetron (Ondansetron Odt) 4 Mg Tab.rapdis, 4 MG PO Q6H PRN for NAUSEA AND/OR VOMITING, #10 TAB Prov:MONICA ZAMORA PA-C 05/07/19 Diphenhydramine Hcl* (Benadryl*) 25 Mg Cap, 25 MG PO Q6, #30 CAP Prov:ANALY MATHUR PA-C 05/05/19 Lorazepam* (Ativan*) 0.5 Mg Tablet, 0.5 MG PO QHS PRN for ANXIETY, #10 TAB Prov:BRIAN RUBIN MD 04/25/19 Lorazepam* (Ativan*) 0.5 Mg Tablet, 0.5 MG PO Q8 for anxiety, #10 TAB Prov:JOAQUIN LONG NP 04/24/19 Diphenhydramine Hcl* (Benadryl*) 50 Mg Cap, 50 MG PO Q6 PRN for ALLERGIC REACTION, #30 CAP Prov:RAUL BIGGS 04/24/19 Methylprednisolone* (Medrol* DOSE PACK) 4 Mg/Dose-Pack Tab.ds.pk, 4 MG PO . DIRECTED for 7 Days, PACKET Prov:RAUL BIGGS 04/24/19 Pseudoephedrine Hcl* (Suphedrin*) 30 Mg Tablet, 30 MG PO Q6 PRN for CONGESTION, #30 TAB Prov:MONICA ZAMORA PA-C 04/22/19 Meclizine Hcl* (Antivert*) 12.5 Mg Tab, 12.5 MG PO Q6H PRN for DIZZINESS, #20 TAB Prov:MONICA ZAMORA PA-C 02/19/19 Magaldrate/Simethicone* (Mag-Al Plus Suspension*) 30 Ml Oral.susp, 30 ML PO Q6H PRN for GASTROINTESTINAL UPSET, #1 BOTTLE Prov:LONNY OLVERA DO 11/10/18 Allergies Allergies: Coded Allergies: pseudoephedrine (Verified Allergy, Severe, 04/24/19) PMhx/Soc History of Surgery: No Anesthesia Reaction: No Hx Neurological Disorder: No Hx Respiratory Disorders: No Hx Cardiac Disorders: No Hx Psychiatric Problems: No Hx Miscellaneous Medical Probl: Yes (ruptured ear drum) Hx Alcohol Use: No Hx Substance Use: No Hx Tobacco Use: No FmHx Family History: No diabetes, No coronary disease, No other Physical Exam Vitals Vital Signs Date Temp Pulse Resp B/P (MAP) Pulse Ox O2 O2 Flow FiO2 Time Delivery Rate 05/12/19 98.2 86 20 134/67 97 09:35 (89) Physical Exam GENERAL: The patient is well-appearing, well-nourished, in no acute distress HEENT: Atraumatic. Conjunctivae are pink. Pupils equal, round, and reactive to light. There is no scleral icterus. Tympanic membranes clear bilaterally. Oropharynx clear. CHEST: Clear to auscultation bilaterally. There are no rales, wheezes or rhonchi. HEART: Regular rate and rhythm. No murmurs, clicks, rubs or gallops. EXTREMITIES: Equal pulses bilaterally. There is no peripheral clubbing, cyanosis or edema. No focal swelling or erythema. Full range of motion. Grossly neurovascularly intact. NEUROLOGIC: Alert and oriented. Cranial nerves II through XII intact. Motor strength in all 4 extremities with 5 out of 5 strength. Sensation grossly intact. Normal speech and gait. Babinski negative. DTR 2+ throughout. Results 24 hrs Laboratory Tests Test 05/12/19 10:30 POC Beta HCG, Qualitative NEGATIVE Current Medications Medications Dose Sig/Delia Start Time Status Last (Trade) Ordered Route PRN Stop Time Admin Dose Reason Admin Ketorolac 60 mg ONCE STAT 05/12/19 DC 05/12/19 Tromethamine IM 10:07 10:37 (Toradol) 05/12/19 10:08 Procedures/MDM MDM: 19-year-old female presenting with headache. Patient's neuro exam is within normal limits. I have low suspicion of intracranial hemorrhage or neuro deficit and I do not feel blood work or imaging is indicated. Patient is discharged with supportive medications and told to follow-up with primary care within 1 to 2 days for close evaluation. Patient is told symptoms change or worsen to return immediately to the ER. All questions answered at discharge Departure Diagnosis: Primary Impression: Headache Condition: Stable Patient Instructions: Self-Care for Headaches Referrals: [facility] (PCP) NENA LOPEZ MD Additional Instructions: FOLLOW UP WITH YOUR PRIMARY CARE PHYSICIAN TOMORROW.Return to this facility if y ou are not improving as expected. MONICA ZAMORA PA-C May 12, 2019 14:27
== END 2019-05-12 11:00 | disposition home or self-care (01) ==
LOC: FTE 09:23
DX: R51 Headache (principal)
CPT/HCPCS: 81025; J1885; 96372